=== PATIENT | male | born 1980 | race Two or more races ===

== ENCOUNTER 2022-03-31 12:32 | Emergency (ER) | payer OTHER ==
[~2022-03-31] VITALS: Ht 177.8 cm; Wt 86.2 kg
[2022-03-31] MEDS ORDERED: COZAAR100 MG PO (13:06)
[2022-03-31] MEDS ORDERED: LIPITOR40 M1 PO (13:06)
[2022-03-31] MEDS ORDERED: FENOFIBRATE150 MG (13:06)
== END 2022-03-31 17:42 | disposition home or self-care (01) ==
LOC: ER 12:32
DX: F41.9 Anxiety disorder, unspecified (principal); R00.2 Palpitations